=== PATIENT | male | born 1980 | race Two or more races ===

== ENCOUNTER 2018-05-18 10:51 | Emergency (ER) | payer OTHER ==
[~2018-05-18] VITALS: Ht 15.2 cm; Wt 99.8 kg
[2018-05-18 12:36] VITALS: BP 128/88
[2018-05-18] MEDS ORDERED: KETOROLAC TROMETH 60MG/2ML VIAL IM ONE (12:45)
== END 2018-05-18 13:41 | disposition home or self-care (01) ==
LOC: ER 10:56
DX: M25.511 Pain in right shoulder (principal); R68.84 Jaw pain; I10 Essential (primary) hypertension; V43.52XA Car driver injured in collision with other type car in traffic accident, initial encounter; Y93.I9 Activity, other involving external motion; Y92.488 Other paved roadways as the place of occurrence of the external cause; Y99.8 Other external cause status
CPT/HCPCS: 70486; 73030; 96372; 99284; J1885

== ENCOUNTER 2018-10-26 14:20 | Emergency (ER) | payer OTHER ==
[~2018-10-26] VITALS: Ht 188 cm; Wt 117.9 kg
[2018-10-26 14:30] VITALS: BP 120/82
== END 2018-10-26 18:46 | disposition left against medical advice (07) ==
LOC: ER 14:25
DX: M54.5 Low back pain (principal); Z53.21 Procedure and treatment not carried out due to patient leaving prior to being seen by health care provider